=== PATIENT | female | born 1975 | race Two or more races ===

== ENCOUNTER 2018-01-17 09:13 | Emergency (ER) | payer MEDICAID ==
[~2018-01-17] VITALS: Ht 149.9 cm; Wt 63.5 kg
[2018-01-17 09:23] VITALS: BP 156/82
--- NOTE | 2018-01-17 09:33 | Emergency Room Report ---
History of Present Illness General Chief Complaint: Chest Pain Source: Patient Present Illness HPI The patient presents after an episode on Thursday, which is 2 days ago, where she was preparing breakfast and had some fleeting left-sided chest pain and felt that she was about to pass out. She breathed in alcohol fumes and started to feel better. She's never had episodes like this before. She's been increasing her exercise doing cardio. She denies any risk factors for cardiac disease at this time that she knows of. Subsequent to that event she's had a slight headache and ringing in her left ear. The headache is 8/10 and throbbing on the left-hand side. In addition to that she's had slight amount of nausea. There's been no return of chest pain subsequent to that time. The patient denies any fevers chills vomiting change in bowels. Her last period was last week and normal for her. She states that occasionally her periods are heavy but she doesn't know of any anemia. The patient has a family history of diabetes Allergies: Coded Allergies: No Known Allergies (Unverified , 01/17/18) Patient History Past Medical History: see triage record Social History: Denies: smoking, alcohol use, drug use Social History Narrative cares for her children Last Menstrual Period: 01/21/18 Reviewed Nursing Documentation: PMH: Agreed; PSxH: Agreed Nursing Documentation-PMH Past Medical History: No History, Except For Hx Hypertension: Yes Review of Systems All Other Systems: negative except mentioned in HPI Physical Exam Vital Signs Date Time Temp Pulse Resp B/P (MAP) Pulse Ox O2 Delivery O2 Flow Rate FiO2 01/17/18 09:17 98.7 90 16 156/82 100 Room Air 98.8 Sp02 EP Interpretation: reviewed, normal General Appearance: well appearing, no apparent distress, GCS 15 Head: normocephalic Eyes: bilateral eye normal inspection - slight pale, bilateral eye PERRL ENT: moist mucus membranes Neck: supple Respiratory: chest non-tender, lungs clear, normal breath sounds Cardiovascular #1: regular rate, rhythm Cardiovascular #2: 2+ radial (R) Gastrointestinal: normal inspection, normal bowel sounds, non tender, no mass, non-distended Musculoskeletal: back normal, gait/station normal, normal range of motion, no calf tenderness, Simon's Sign negative Neurologic: alert, oriented x3, motor strength/tone normal, DTRs symmetric, sensory intact Psychiatric: mood/affect normal, anxious - but calm Reflexes: 2+ knee (R), 2+ knee (L) Skin: normal inspection, warm/dry Medical Decision Making Diagnostic Impression: Primary Impression: Chest pain Qualified Codes: R07.9 - Chest pain, unspecified Additional Impression: Headache Qualified Codes: R51 - Headache ER Course The patient presents with fleeting chest pain and near syncope which occurred that 2 days ago. She says and residual slight headache and ringing in her left ear. Her neurologic exam is normal at this time which precludes CT head. Differential includes arrhythmia, acute myocardial infarction, acute coronary syndrome, anxiety, volume depletion amongst others. The patient be evaluated with EKG, chest x-ray and labs. Based on the history and exam, PE is excluded. The patient will be treated with Zofran and Tylenol. EKG normal. CXR normal. Labs normal. Patient improved with treatment. Discussed results and need for follow up with her MD. Patient stable for outpatient observation and treatment. Laboratory Tests Test 01/17/18 09:20 01/17/18 10:05 White Blood Count 5.7 K/UL (4.8-10.8) Red Blood Count 4.67 M/UL (4.20-5.40) Hemoglobin 14.8 G/DL (12.0-16.0) Hematocrit 43.9 % (37.0-47.0) Mean Corpuscular Volume 94 FL (80-99) Mean Corpuscular Hemoglobin 31.6 PG (27.0-31.0) H Mean Corpuscular Hemoglobin Concent 33.6 G/DL (32.0-36.0) Red Cell Distribution Width 11.2 % (11.6-14.8) L Platelet Count 243 K/UL (150-450) Mean Platelet Volume 8.0 FL (6.5-10.1) Neutrophils (%) (Auto) 68.3 % (45.0-75.0) Lymphocytes (%) (Auto) 23.1 % (20.0-45.0) Monocytes (%) (Auto) 5.8 % (1.0-10.0) Eosinophils (%) (Auto) 2.1 % (0.0-3.0) Basophils (%) (Auto) 0.6 % (0.0-2.0) Prothrombin Time 9.3 SEC (9.30-11.50) Prothrombin Time INR 0.9 (0.9-1.1) PTT 27 SEC (23-33) Sodium Level 141 MMOL/L (136-145) Potassium Level 3.8 MMOL/L (3.5-5.1) Chloride Level 106 MMOL/L (98-107) Carbon Dioxide Level 27 MMOL/L (21-32) Anion Gap 8 mmol/L (5-15) Blood Urea Nitrogen 11 mg/dL (7-18) Creatinine 0.6 MG/DL (0.55-1.30) Estimate Glomerular Filtration Rate > 60 mL/min (>60) Glucose Level 94 MG/DL (74-106) Calcium Level 8.9 MG/DL (8.5-10.1) Total Bilirubin 0.4 MG/DL (0.2-1.0) Aspartate Amino Transferase (AST) 20 U/L (15-37) Alanine Aminotransferase (ALT) 28 U/L (12-78) Alkaline Phosphatase 105 U/L (46-116) Total Creatine Kinase 70 U/L (26-308) Troponin I 0.000 ng/mL (0.000-0.056) Pro-B-Type Natriuretic Peptide 83 pg/mL (0-125) Total Protein 8.3 G/DL (6.4-8.2) H Albumin 4.0 G/DL (3.4-5.0) Globulin 4.3 g/dL Albumin/Globulin Ratio 0.9 (1.0-2.7) L Urine Color Pale yellow Urine Appearance Clear Urine pH 7 (4.5-8.0) Urine Specific [place] 1.005 (1.005-1.035) Urine Protein Negative (NEGATIVE) Urine Glucose (UA) Negative (NEGATIVE) Urine Ketones Negative (NEGATIVE) Urine Occult Blood 1+ (NEGATIVE) H Urine Nitrite Negative (NEGATIVE) Urine Bilirubin Negative (NEGATIVE) Urine Urobilinogen Normal MG/DL (0.0-1.0) Urine Leukocyte Esterase Negative (NEGATIVE) Urine RBC 0-2 /HPF (0 - 2) Urine WBC 0 /HPF (0 - 2) Urine Squamous Epithelial Cells Occasional /LPF Urine Bacteria Occasional /HPF (NONE) Urine HCG, Qualitative Negative (NEGATIVE) EKG Diagnostic Results Rate: normal Rhythm: NSR ST Segments: no acute changes Rhythm Strip Diag. Results EP Interpretation: yes Rhythm: NSR, no PVC's, no ectopy Chest X-Ray Diagnostic Results Chest X-Ray Diagnostic Results : Chest X-Ray Ordered: Yes # of Views/Limited/Complete: 1 View Indication: Chest Pain EP Interpretation: Yes Interpretation: no consolidation, no effusion, no pneumothorax, no acute cardiopulmonary disease Impression: No acute disease Electronically Signed by: Juan Miguel Stover MD Last Vital Signs Date Time Temp Pulse Resp B/P (MAP) Pulse Ox O2 Delivery O2 Flow Rate FiO2 01/17/18 12:20 98.6 75 20 107/59 99 Room Air 98.6 Status: improved Disposition: HOME, SELF-CARE Condition: Improved Scripts Aspirin* (ASPIR 81*) 81 Mg Tablet. 81 MG ORAL DAILY, #30 TAB Prov: Juan Miguel Stover M.D. 01/17/18 Juan Miguel Stover M.D. January 17, 2018 09:33
[2018-01-17 09:35] VITALS: BP_SYST 124; BP_SYST 134; BP_SYST 137; BP_DIAS 68; BP_DIAS 69; BP_DIAS 70
[2018-01-17 09:47] LABS: BASOPHILS % (AUTO) 0.6 % (0.0-2.0); EOSINOPHILS % (AUTO) 2.1 % (0.0-3.0); HEMATOCRIT 43.9 % (37.0-47.0); HEMOGLOBIN 14.8 G/DL (12.0-16.0); LYMPHOCYTES % (AUTO) 23.1 % (20.0-45.0); MEAN CORPUSCULAR VOLUME 94 FL (80-99); MONOCYTES % (AUTO) 5.8 % (1.0-10.0); NEUTROPHILS % (AUTO) 68.3 % (45.0-75.0); PLATELET COUNT 243 K/UL (150-450); RED BLOOD COUNT 4.67 M/UL (4.20-5.40); RED CELL DISTRIBUTION WIDTH 11.2 % (11.6-14.8); WHITE BLOOD COUNT 5.7 K/UL (4.8-10.8)
[2018-01-17 10:05] LABS: INR 0.9 (0.9-1.1)
[2018-01-17 10:10] LABS: ANION GAP 8 mmol/L (5-15); BLOOD UREA NITROGEN 11 mg/dL (7-18); CALCIUM 8.9 MG/DL (8.5-10.1); CARBON DIOXIDE 27 MMOL/L (21-32); CHLORIDE 106 MMOL/L (98-107); CREATININE 0.6 MG/DL (0.55-1.30); POTASSIUM 3.8 MMOL/L (3.5-5.1); SODIUM 141 MMOL/L (136-145)
[2018-01-17 10:21] LABS: ALANINE AMINOTRANSFERASE 28 U/L (12-78); ALBUMIN/GLOBULIN RATIO 0.9 (1.0-2.7); ALKALINE PHOSPHATASE 105 U/L (46-116); ASPARTATE AMINO TRANSFERASE 20 U/L (15-37); BILIRUBIN,TOTAL 0.4 MG/DL (0.2-1.0); CREATINE KINASE 70 U/L (26-308)
[2018-01-17 10:24] LABS: APPEARANCE,URINE CLEAR; BILIRUBIN, URINE NEGATIVE (NEGATIVE); COLOR,URINE PALE YELLOW; GLUCOSE, URINE (UA) NEGATIVE (NEGATIVE); KETONES,URINE NEGATIVE (NEGATIVE); LEUKOCYTE ESTERASE ,URINE NEGATIVE (NEGATIVE); NITRITE,URINE NEGATIVE (NEGATIVE); PH,URINE 7 (4.5-8.0); PROTEIN,URINE NEGATIVE (NEGATIVE); UROBILINOGEN,URINE NORMAL MG/DL (0.0-1.0)
--- NOTE | 2018-01-17 10:24 | Diagnostic Imaging Report ---
INDICATION: Chest pain COMPARISON: None FINDINGS: Single frontal view demonstrates a normal cardiomediastinal silhouette. The lungs are clear. No pleural effusions. The visualized osseous structures are within normal limits. IMPRESSION: No acute cardiopulmonary disease.
[2018-01-17 10:26] VITALS: BP 138/76
[2018-01-17] MEDS ORDERED: ASPIR 8181 MG ORAL (12:01)
[2018-01-17 12:20] VITALS: BP 107/59
--- NOTE | 2018-01-18 18:53 | Cardiology Report ---
APPROVED REPORT EKG Measurement Heart [id number] Normal sinus rhythm Prolonged QT Abnormal ECG
== END 2018-01-17 12:20 | disposition home or self-care (01) ==
LOC: EMR 09:36
DX: R07.89 Other chest pain (principal); R51 Headache; I10 Essential (primary) hypertension
CPT/HCPCS: 36415; 71045; 80053; 81003; 81025; 82550; 83880; 84484; 85025; 85610; 85730; 93005; 96374; 99283; J2405